=== PATIENT | male | born 1955 | race Caucasian/White ===

== ENCOUNTER → 2017-02-22 | Outpatient (CLI) | payer OTHER ==
--- NOTE | 2017-02-26 08:47 | PCVCIMAG ---
APPROVED REPORT Exam: Stress Echocardiogram Indication: CAD s/p OR Patient Location: Echo lab Stress Nurse: Latasha Pinto RN Status: routine Ht: 5 ft 9 in HR: 64 bpm BP: 156/76 mmHg Rhythm: NSR Medical History Medical History: CAD s/p stent, OR, HTN, Hyperlipidemia Medications: Metoprolol Cardiac Risk Factors: HTN, Hyperlipidemia,CAD Previous Cardiac Procedures: PCI , Myocardial infarction Pretest Chest Pain Characteristics: No chest pain Exercise History: Indeterminate Physical Disabilities: Leg- Pt states legs "feel funny-tingly" Procedure The patient underwent an Exercise Stress Test using the Lisandro Protocol. Blood pressure, heart rate, and EKG were monitored. An Echocardiogram was performed by configuration technician in four stages in quad fashion. At peak stress, four selected images were obtained and placed side by side with resting images for comparison. Stress Test Details Stress Test: Exercise stress testing was performed using a Lisandro protocol. HR Resting HR: 64 bpmMax Heart Rate (APMHR): 157 bpm Max HR Achieved: 181 bpmTarget HR (85% APMHR): 133 bpm % of APMHR: 115 Recovery HR: 90 bpm HR response to stress: Normal HR response to stress BP Resting BP: 156/76 mmHg Max BP: 210/76 mmHg Recovery BP: 178/756 mmHg ECG Resting ECG: Sinus Rhythm Stress ECG: Sinus Rhythm ST Change: Upsloping ST depression Maximum ST Deviation: 1.2 mm Arrhythmia: None Recovery ECG: Sinus Rhythm Recovery ST Change: Non-ischemic Recovery Arrhythmia: None Clinical Reason for Termination: Maximal effort Stress Symptoms: Chest pain, Dyspnea Exercise duration: 7 min 31 sec Highest Stage Achieved: Stage 3: 3.4 mph at 14% grade. Exercise capacity: 10.1 METs Overall Exercise Capacity for Age: Average Scale: Active Angina Score: None Stress ECG Conclusion The patient exercised according to the LISANDRO protoco; for 7:31 minutes, achieving a work level of 10.1 Max. METS. The resting heart rate of 64 bpm fr[place] to a maximal heart rate of 130 bpm. This value represents 83% of the maximal, age-predicted heart rate. The resting blood pressure of 156/76mmHg, fr[place] to a maximum blood pressure of 210/76 The exercise test was stopped due to fatigue. Hoover Treadmill Score is 1.0 which is Moderate risk. Pre-Stress Echo The resting Echocardiogram showed normal left ventricular contractility with an estimated Ejection Fraction of about >55%. Normal wall motion in all segments on baseline images. Post-Stress Echo The stress Echocardiogram showed normal left ventricular contractility with an estimated Ejection Fraction of about 65-70%. Normal augmentation of wall motion in all segments on post stress images. Conclusion Clinical Response: Non-ischemic Exercise Capacity: Average Stress ECG Response: Equivocal Stress Echo Images: Non-ischemic No echocardiographic evidence for exercise induced ischemia. <Conclusion> No echocardiographic evidence for exercise induced ischemia.
== END | disposition home or self-care (01) ==
LOC: PCVCIMAG 09:57
PROVIDERS: ATTEND Internal Medicine Cardiovascular Disease
DX: I25.10 Atherosclerotic heart disease of native coronary artery without angina pectoris (principal); I25.2 Old myocardial infarction; I10 Essential (primary) hypertension; E78.5 Hyperlipidemia, unspecified; I73.9 Peripheral vascular disease, unspecified; I77.89 Other specified disorders of arteries and arterioles; E78.00 Pure hypercholesterolemia, unspecified; Z79.82 Long term (current) use of aspirin; Z95.5 Presence of coronary angioplasty implant and graft; Z90.49 Acquired absence of other specified parts of digestive tract; Z72.0 Tobacco use
CPT/HCPCS: 36415; 93325; 93351; G0463

== ENCOUNTER → 2017-03-01 | Outpatient (CLI) | payer OTHER ==
--- NOTE | 2017-03-02 21:41 | PCVCIMAG ---
EXAM: BILATERAL LOWER EXTREMITY ARTERIAL DUPLEX INDICATION: Peripheral Arterial Disease. Leg pain. FINDINGS: Right Leg: Satisfactory arterial waveforms throughout the common/profunda/superficial femoral, popliteal, anterior tibial, peroneal, and posterior tibial arteries. No flow limiting stenosis seen. Minimal stenosis distal superficial femoral artery is noted. Left Leg: Satisfactory arterial waveforms in the common femoral and profunda femoral arteries. Moderate plaque distal superficial femoral artery with increased systolic velocities of 252 cm/s consistent with 50-60% stenosis. Popliteal artery is patent. The anterior tibial, peroneal, and posterior tibial arteries are patent. IMPRESSION: No flow limiting stenosis in the right lower extremity. 50-60% stenosis distal left superficial femoral artery. Otherwise no stenosis in the left lower extremity is identified. Further evaluation with noninvasive arterial study including pre and post exercise ABIs may be helpful if needed clinically. LOC:OFFICE
--- NOTE | 2017-03-02 21:45 | PCVCIMAG ---
EXAM: AORTOILIAC DUPLEX INDICATION: Peripheral arterial disease FINDINGS: AORTA: Suprarenal aorta measures maximum diameter of 2.8 cm. There is not a fusiform infrarenal aortic aneurysm. The infrarenal aorta measures maximum diameter of 2.4 cm. No aortic stenosis. RIGHT COMMON ILIAC ARTERY: Maximum diameter is 1.3 cm. No significant stenosis. RIGHT EXTERNAL ILIAC ARTERY: No significant stenosis. LEFT COMMON ILIAC ARTERY: Maximum diameter is 1.7 cm. No significant stenosis. LEFT EXTERNAL ILIAC ARTERY: No significant stenosis. IMPRESSION: No abdominal aortic aneurysm. No aortoiliac stenosis seen. LOC:OFFICE
== END | disposition home or self-care (01) ==
LOC: PCVCIMAG 08:24
PROVIDERS: ATTEND Internal Medicine Cardiovascular Disease
DX: I70.202 Unspecified atherosclerosis of native arteries of extremities, left leg (principal); I25.10 Atherosclerotic heart disease of native coronary artery without angina pectoris; I10 Essential (primary) hypertension; E78.00 Pure hypercholesterolemia, unspecified; F17.200 Nicotine dependence, unspecified, uncomplicated; Z90.49 Acquired absence of other specified parts of digestive tract
CPT/HCPCS: 93925; 93978

== ENCOUNTER → 2018-10-31 | Outpatient (CLI) | payer OTHER ==
[~2018-10-31] MED LIST: REGADENOSON 0.4 MG/5 ML DISP.SYRIN. IV ONE
--- NOTE | 2018-10-31 11:33 | PCVCIMAG ---
APPROVED REPORT Imaging Protocol: Rest Tc-99m/Stress Tc-99m 1 day Study performed: 10/31/2018 09:12:53 Indication: CAD Patient Location: Out-Patient Stress Nurse: Alice Recinos RN, Latasha Pinto RN [place] Tech:Sue Carbajalcamron [facility] Ht: 5 ft 10 in Wt: 220 lbs BSA: 2.17 m2 HR: 63 bpm BP: 179/83 mmHg BMI: 31.56 Rhythm: Sinus Rhythm, nonspecific ST-T abnormalities Medical History Medical History: CAD, Hyperlipidemia, HTN, Current Smoker Medications: ASA, Atorvastatin, Fenofibrate, Metoprolol, Ramipril, NTG SL Allergies: No known drug allergies Cardiac Risk Factors: Age Previous Cardiac Procedures: 2009 & 2013 PCI - RCA Stents Pretest Chest Pain Characteristics: No chest pain Exercise History: Sedentary Physical Disabilities: Knees Meds Held (24 hrs): Metoprolol Resting Data Rest SPECT myocardial perfusion imaging was performed in supine position minutes following the intravenous injection of 10.7 mCi of Tc-99m Sestamibi. Time of rest injection: 829 Date: 10/31/2018 Administration Route: IV Administration Site: Right AC Pharmacologic Stress Pharmacologic stress test was performed by injecting Regadenoson 0.4 mg IV push over 10-15 seconds immediately followed by the intravenous injection of 34.4 mCi of Tc-99m Sestamibi. Time of stress injection: 949 Date: 10/31/2018 Administration Route: IV Administration Site: Right AC Gated Stress SPECT was performed 45 minutes after stress injection. The images were gated to evaluate regional wall motion and calculate left ventricular ejection fraction. Stress Test Details Stress Test: Pharmacologic stress testing performed using 0.4 mg of regadenoson per 5 mL given IV over 10 seconds. Reason for pharmacologic stress test: Knee issues. HRMax Heart Rate (APMHR): 156 bpm Resting HR: 63 bpmTarget HR (85% APMHR): 132 bpm Max HR Achieved: 95 bpm % of APMHR: 60 Recovery HR: 74 bpm BP Resting BP: 179/83 mmHg Max BP: 169/77 mmHg Recovery BP: 167/79 mmHg ECG Resting ECG: Sinus Rhythm, nonspecific ST-T abnormalities Stress ECG: Sinus Tachycardia, nonspecific ST-T abnormalities ST Change: Non-ischemic Arrhythmia: None Recovery ECG: Sinus Rhythm, nonspecific ST-T abnormalities Clinical Reason for Termination: Completed protocol Stress Symptoms: Dyspnea Exercise duration: 4 min 00 sec Exercise capacity: 1.6 METs Symptoms resolved with caffeine. Study Quality Study: Good Artifact: Moderate Diaphragmatic artifact Study Data Post stress, the left ventricular ejection was 67%.. SSS: 5 SRS: 9 SDS: 1 TID = 0.95. Perfusion There is a medium area of moderately reduced uptake in the mid and apical segment of the inferior wall which is seen on the stress images and normalizes on the resting images. This area thickens and moves normally and is most consistent with attenuation artifact. Wall Motion Normal left ventricular wall motion. Nuclear Conclusion ECG Findings: negative for ischemia Clinical Findings: non-diagnostic Nuclear Findings: negative for ischemia Exercise Capacity: not assessed Left Ventricular Function: normal This study is of low probability for inducible ischemia or prior infarct. Normal global and segmental LV systolic function. Artifact: Moderate Diaphragmatic artifact
== END | disposition home or self-care (01) ==
LOC: PCVCIMAG 08:16
PROVIDERS: ATTEND Internal Medicine Cardiovascular Disease
DX: I25.10 Atherosclerotic heart disease of native coronary artery without angina pectoris (principal)
CPT/HCPCS: 78452; 93017; A9500; J2785

== ENCOUNTER → 2019-05-29 | Outpatient (CLI) | payer OTHER | END | disposition home or self-care (01) | LOC: PCVCCLINIC 10:30 | PROVIDERS: ATTEND Internal Medicine Cardiovascular Disease | DX: I25.10 Atherosclerotic heart disease of native coronary artery without angina pectoris (principal); R94.31 Abnormal electrocardiogram [ECG] [EKG]; I10 Essential (primary) hypertension; E78.00 Pure hypercholesterolemia, unspecified; E78.5 Hyperlipidemia, unspecified; Z72.0 Tobacco use; Z72.89 Other problems related to lifestyle; Z79.899 Other long term (current) drug therapy; Z90.49 Acquired absence of other specified parts of digestive tract; Z82.49 Family history of ischemic heart disease and other diseases of the circulatory system | CPT/HCPCS: 93005; G0463 ==